=== PATIENT | male | born 2000 | race Caucasian/White ===

== ENCOUNTER 2025-07-24 02:46 | Emergency (ER) | payer OTHER ==
[2025-07-24] MEDS ORDERED: Ketorolac Tromethamine 30 MG (1 mL) VIAL ONE (03:03)
[2025-07-24] MEDS ORDERED: Ondansetron PF 4 MG/2 ML Vial ONE ×2 (03:04→03:33)
[2025-07-24 03:25] LABS: Hematocrit 43.9 % (42.0-52.0); Hemoglobin 16.1 g/dL (14.0-18.0); MDiff Complete? YES; Mean Corpuscular Hemoglobin 29.5 pg (27.0-31.0); Mean Corpuscular Volume 80.7 fl (78.0-98.0); Platelet Adequacy Comment Appears Adequate; Platelet Count 290 10x3/uL (130-400); Red Blood Cell (RBC) Count 5.44 mill/uL (4.70-6.10); White Blood Cell (WBC) Count 10.8 10x3/uL (4.8-10.8)
[2025-07-24 03:28] LABS: ALT (SGPT) 16 U/L (Less than 45); AST (SGOT) 24 U/L (11-34); Albumin 4.5 g/dL (3.1-4.5); Alkaline Phosphatase 47 U/L (40-110); Anion Gap 17 mmol/L (10-20); BUN (Urea Nitrogen) 14 mg/dL (8.9-20.6); Bilirubin, Total 0.5 mg/dL (0.3-1.2); Calc. Creatinine Clearance 0 mL/min (70-130); Calcium 9.2 mg/dL (7.8-10.44); Carbon Dioxide 21 mmol/L (22-29); Chloride 108 mmol/L (98-107); Globulin 3.0 g/dL (2.4-3.5); Glucose 145 mg/dL (70-105); Lipase 33 U/L (8-78); Potassium 3.5 mmol/L (3.5-5.1); Sodium 142 mmol/L (136-145)
[2025-07-24 03:57] LABS: Glucose, Urine (Dipstick) Negative (Negative); Leukocyte Negative (Negative); Protein, Urine (Dipstick) 100 mg/dL (Neg-Trace); Specific Gravity, Urine 1.025 (1.005-1.030)
[2025-07-24 04:05] LABS: Bacteria/HPF 1+ HPF (None Seen); CAUTI Indications for Culture Acute Hematuria; WBC/HPF 0-3 HPF (0-3)
[2025-07-24 04:06] LABS: Urine Culture Reflex No No
== END 2025-07-24 04:20 | disposition home or self-care (01) ==
LOC: BURERS 02:46
DX: N20.0 Calculus of kidney (principal); F17.210 Nicotine dependence, cigarettes, uncomplicated
CPT/HCPCS: 74176; 80053; 81001; 83690; 85025; 96361; 96374; 96375; J1885; J2270; J2405